=== PATIENT | female | born 1960 | race Caucasian/White ===

== ENCOUNTER → 2018-11-25 | Outpatient (CLI) | payer MEDICARE, MEDICAID ==
--- NOTE | 2018-11-25 09:30 | Diagnostic Imaging Report ---
CLINICAL INDICATION: Patient with elevated LFTs. Alcoholism in remission. EXAM: Right upper quadrant ultrasound. COMPARISON: None. FINDINGS: Bowel gas obscures portions of the pancreatic tail limiting evaluation. The pancreatic head and portion of the body show no significant abnormality. There is diffuse hyperechogenicity seen throughout the liver. The liver surface is smooth. There is no liver mass seen. The main portal vein demonstrates normal biphasic hepatopedal flow. The liver measures 16.0 cm. There is no intrahepatic or extrahepatic ductal dilation. Common bile duct measures 3.2 mm. The gallbladder is partially fluid-filled with no abnormality seen. There are no stones or sludge. There is no gallbladder wall thickening or pericholecystic fluid. There is no sonographic Delgado's sign. The right kidney is unremarkable with normal echogenicity, cortical thickness, size, and shape. There is no kidney mass or hydronephrosis. Right kidney measures 10.5 cm in craniocaudal dimension. There is no abdominal ascites. IMPRESSION: 1: There is diffuse hyperechogenicity seen throughout the liver which may be related to diffuse fatty infiltration or chronic hepatocellular disease. There is no liver mass seen. 2: Bowel gas obscures portions of the pancreatic tail. Otherwise pancreas is unremarkable as visualized. 3: Gallbladder is unremarkable with no stones or sludge. Dictated by: Dictated on workstation # [id number]
== END ==
LOC: RAD FS 08:16
PROVIDERS: ATTEND Nurse Practitioner Primary Care
DX: F10.21 Alcohol dependence, in remission (principal); R79.89 Other specified abnormal findings of blood chemistry
CPT/HCPCS: 76705

== ENCOUNTER → 2019-05-14 | Outpatient (CLI) | payer MEDICARE, MEDICAID ==
--- NOTE | 2019-05-14 17:00 | Diagnostic Imaging Report ---
INDICATION: Bilateral hip pain, no known injury. AP pelvis and AP and oblique views of both hips are obtained. No fracture or acute bony abnormality is seen. There is no lytic or blastic lesion. There is [id number] joint space narrowing of both hips with acetabular osteophyte formation. SI joints appear unremarkable. IMPRESSION: Moderate degenerative findings of both hips with no acute abnormality seen. Dictated by: Dictated on workstation # [id number]
== END ==
LOC: RAD FS 10:57
PROVIDERS: ATTEND Nurse Practitioner
DX: M16.0 Bilateral primary osteoarthritis of hip (principal)
CPT/HCPCS: 73521

== ENCOUNTER → 2020-12-22 | Outpatient (CLI) | payer MEDICARE, MEDICAID ==
--- NOTE | 2020-12-23 09:10 | Diagnostic Imaging Report ---
Indication: Routine screening. No prior mammograms are available for comparison. 2-D and 3-D bilateral screening mammography was performed with CAD. Both breasts are heterogeneously dense, limiting the sensitivity of mammography. There are benign calcifications in both breasts. There is a circumscribed nodule in the medial right breast approximately 3:00 location 3-4 cm from the nipple. No other masses are seen. No malignant appearing microcalcifications are identified. Axillae are unremarkable. IMPRESSION: BI-RADS Category 0 Circumscribed nodule in the right breast, as described. Additional views recommended for further evaluation. ACR BI-RADS Category 0: Incomplete. (Needs additional imaging evaluation). Result letter will be mailed to the patient. Note: At least 10% of breast cancer is not imaged by mammography. Dictated by: Dictated on workstation # [id number]
== END ==
LOC: RAD 15:15
PROVIDERS: ATTEND Nurse Practitioner Primary Care
DX: Z12.31 Encounter for screening mammogram for malignant neoplasm of breast (principal); Z00.00 Encounter for general adult medical examination without abnormal findings; Z80.3 Family history of malignant neoplasm of breast
CPT/HCPCS: 77063; 77067

== ENCOUNTER 2021-01-03 08:54 | Emergency (ER) | payer MEDICARE, MEDICAID ==
[~2021-01-03] VITALS: Ht 167 cm; Wt 79.5 kg
[2021-01-03 09:21] LABS: BASOPHILS % (AUTO) 0 % (0-10); EOSINOPHILS # (AUTO) 0.2 10^3/uL (0.0-0.3); EOSINOPHILS % (AUTO) 2 % (0-10); HEMATOCRIT 39 % (35-52); HEMOGLOBIN 12.8 g/dL (11.5-16.0); LYMPHOCYTES # (AUTO) 2.2 10^3/uL (1.0-4.0); LYMPHOCYTES % (AUTO) 25 % (12-44); MEAN CORPUSCULAR HEMOGLOBIN 28 pg (25-34); MEAN CORPUSCULAR HGB CONC 33 g/dL (32-36); MEAN CORPUSCULAR VOLUME 85 fL (80-99); MEAN PLATELET VOLUME 9.6 fL (9.0-12.2); MONOCYTES # (AUTO) 0.6 10^3/uL (0.0-1.0); MONOCYTES % (AUTO) 7 % (0-12); NEUTROPHILS # (AUTO) 5.8 10^3/uL (1.8-7.8); NEUTROPHILS % (AUTO) 66 % (42-75); PLATELET COUNT 262 10^3/uL (130-400); WHITE BLOOD COUNT 8.8 10^3/uL (4.3-11.0)
[2021-01-03 09:35] LABS: POTASSIUM 4.1 MMOL/L (3.6-5.0)
[2021-01-03 09:36] LABS: CALCIUM 9.2 MG/DL (8.5-10.1)
[2021-01-03 09:37] LABS: TOTAL PROTEIN 7.3 GM/DL (6.4-8.2)
[2021-01-03 09:39] LABS: BILIRUBIN,TOTAL 0.3 MG/DL (0.1-1.0)
[2021-01-03 09:41] LABS: CREATININE SERUM 0.8 MG/DL (0.60-1.30)
--- NOTE | 2021-01-03 10:27 | Diagnostic Imaging Report ---
INDICATION: Lower extremity swelling and shortness of breath. TECHNIQUE: Frontal chest obtained at 09:52 a.m. COMPARISON: There is no prior study for comparison. FINDINGS: Heart and mediastinal silhouette are normal in appearance. There is minimal central vascular prominence without edema. There is no consolidation or pneumothorax or pleural fluid. There are postop changes in lower cervical spine. Stimulator device is seen overlying the lower thoracic canal. IMPRESSION: Minimal central vascular prominence with no acute infiltrate or edema. Dictated by: Dictated on workstation # [id number]
--- NOTE | 2021-01-03 10:47 | ED General ---
General Chief Complaint: General Problems/Pain Stated Complaint: FEEL/LEG SWELLING Nursing Triage Note: AMB TO ROOM WITH C/O SWELLING TO LEG'S WAS TOLD BY PCP AT [facility] TO COME TO ED. LEGS SLIGHTLEY SWOLLEN Source of Information: Patient Exam Limitations: No Limitations History of Present Illness Date Seen by Provider: Jan 03, 2021 Time Seen by Provider: 09:15 Initial Comments This 60-year-old woman presents to the emergency room with complaints of generalized swelling to her feet and ankles bilaterally for the past 3 days. She started to do medication for restless leg syndrome about 1 month ago but she does not know what that medication was. She has otherwise had no medication changes or changes in her health history recently. She admits to some shortness of breath but states that that is chronic and she is a smoker. She has no cardiac history. She denies any increase in salt intake. She is presently on disability due to spine issues. She denies chest pain. Her primary care provider is Judah Feldman NP. Allergies and Home Medications Allergies Coded Allergies: Penicillins (Verified Allergy, Unknown, 01/03/21) codeine (Verified Allergy, Unknown, 01/03/21) Patient Home Medication List Home Medication List Reviewed: Yes Review of Systems Review of Systems Constitutional: no symptoms reported EENTM: no symptoms reported Respiratory: no symptoms reported, see HPI Cardiovascular: see HPI Gastrointestinal: no symptoms reported Genitourinary: no symptoms reported Musculoskeletal: no symptoms reported Skin: no symptoms reported Psychiatric/Neurological: No Symptoms Reported Hematologic/Lymphatic: No Symptoms Reported Immunological/Allergic: no symptoms reported Past [place]-Gxpbeo-Jarexm Hx Patient Social History Tobacco Use?: Yes Use of E-Cig and/or Vaping Sher: Current Everyday User Substance use?: No Pt feels they are or have been: No Immunizations Up To Date Influenza Vaccine Up-to-Date: Yes; Up-to-Date Past Medical History Surgeries: Yes (Back stimulator) Orthopedic Respiratory: No Cardiac: No Neurological: Yes (Restless leg syndrome) Genitourinary: No Gastrointestinal: Yes Irritable Bowel Musculoskeletal: Yes Chronic Back Pain Endocrine: No HEENT: No Cancer: No Psychosocial: Yes Sleep Difficulties Physical Exam Vital Signs Vital Signs - First Documented 01/03/21 08:58 Temp 36.5 Pulse 72 Resp 18 B/P (MAP) 160/70 (100) Pulse Ox 96 O2 Delivery Room Air Capillary Refill : Less Than 3 Seconds Height, Weight, BMI Height: '" Weight: lbs. oz. kg; 28.00 BMI Method: General Appearance: No Apparent Distress, WD/WN HEENT: Normal ENT Inspection Neck: Normal Inspection Respiratory: Lungs Clear, Normal Breath Sounds, No Accessory Muscle Use, No Respiratory Distress Cardiovascular: Regular Rate, Rhythm, No Murmur, Other (Mild bilateral edema of the ankles and feet) Gastrointestinal: Non Tender, Soft; No Distended Extremity: Non Tender, Pedal Edema, Swelling Neurologic/Psychiatric: Oriented x3, No Motor/Sensory Deficits, Normal Mood/Affect Skin: Normal Color, Warm/Dry Progress/Results/Core Measures Suspected Sepsis SIRS Temperature: Pulse: 72 Respiratory Rate: 18 Laboratory Tests 01/03/21 09:14: White Blood Count 8.8 Blood Pressure 160 /70 Mean: 100 Laboratory Tests 01/03/21 09:14: Creatinine 0.80, Platelet Count 262, Total Bilirubin 0.3 Results/Orders Lab Results Laboratory Tests Test 01/03/21 09:14 Range/Units White Blood Count 8.8 4.3-11.0 10^3/uL Red Blood Count 4.60 3.80-5.11 10^6/uL Hemoglobin 12.8 11.5-16.0 g/dL Hematocrit 39 35-52 % Mean Corpuscular Volume 85 80-99 fL Mean Corpuscular Hemoglobin 28 25-34 pg Mean Corpuscular Hemoglobin Concent 33 32-36 g/dL Red Cell Distribution Width 13.3 10.0-14.5 % Platelet Count 262 130-400 10^3/uL Mean Platelet Volume 9.6 9.0-12.2 fL Immature Granulocyte % (Auto) 1 % Neutrophils (%) (Auto) 66 42-75 % Lymphocytes (%) (Auto) 25 12-44 % Monocytes (%) (Auto) 7 0-12 % Eosinophils (%) (Auto) 2 0-10 % Basophils (%) (Auto) 0 0-10 % Neutrophils # (Auto) 5.8 1.8-7.8 10^3/uL Lymphocytes # (Auto) 2.2 1.0-4.0 10^3/uL Monocytes # (Auto) 0.6 0.0-1.0 10^3/uL Eosinophils # (Auto) 0.2 0.0-0.3 10^3/uL Basophils # (Auto) 0.0 0.0-0.1 10^3/uL Immature Granulocyte # (Auto) 0.0 0.0-0.1 10^3/uL Sodium Level 142 135-145 MMOL/L Potassium Level 4.1 3.6-5.0 MMOL/L Chloride Level 107 98-107 MMOL/L Carbon Dioxide Level 20 L 21-32 MMOL/L Anion Gap 15 H 5-14 MMOL/L Blood Urea Nitrogen 11 7-18 MG/DL Creatinine 0.80 0.60-1.30 MG/DL Estimat Glomerular Filtration Rate 73 BUN/Creatinine Ratio 14 Glucose Level 156 H 70-105 MG/DL Calcium Level 9.2 8.5-10.1 MG/DL Corrected Calcium 9.2 8.5-10.1 MG/DL Total Bilirubin 0.3 0.1-1.0 MG/DL Aspartate Amino Transf (AST/SGOT) 47 H 5-34 U/L Alanine Aminotransferase (ALT/SGPT) 77 H 0-55 U/L Alkaline Phosphatase 155 H 40-136 U/L B-Type Natriuretic Peptide 26.3 <100.0 PG/ML Total Protein 7.3 6.4-8.2 GM/DL Albumin 4.0 3.2-4.5 GM/DL My Orders Orders - GERSON ARORA MD BNP (01/03/21 09:15) Cbc With Automated Diff (01/03/21 09:15) Comprehensive Metabolic Panel (01/03/21 09:15) Ed Iv/Invasive Line Start (01/03/21 09:15) Chest 1 View, Ap/Pa Only (01/03/21 09:15) Vital Signs/I&O 01/03/21 01/03/21 08:58 10:51 Temp 36.5 Pulse 72 80 Resp 18 18 B/P (MAP) 160/70 (100) 126/64 Pulse Ox 96 94 O2 Delivery Room Air Room Air Capillary Refill : Less Than 3 Seconds Blood Pressure Mean: 100 Progress Note : Progress Note Work-up was unremarkable. See discharge instructions for further discussion. Departure Impression Primary Impression: Lower leg edema Disposition: 01 HOME, SELF-CARE Condition: Stable Departure-Patient Inst. Decision time for Depature: 10:46 Referrals: JUDAH FELDMAN APRN (PCP/Family) Primary Care Physician Patient Instructions: Dependent Edema (DC) Add. Discharge Instructions: There is no evidence of heart failure or kidney failure on your work-up in the ER. Please follow-up with your primary care provider as soon as possible to discuss other possible causes of your swelling. Review medications with your primary care provider as swelling is sometimes related to an adverse effect of any medication. Drink plenty of water and eat a low-salt diet. Elevate your feet when possible and avoid prolonged periods of time with your feet dangling or standing. Call with questions or concerns. Return to the ER if you have worsening symptoms. All discharge instructions reviewed with patient and/or family. Voiced understanding. GERSON ARORA MD Jan 03, 2021 10:47
[2021-01-03 10:51] VITALS: BP 126/64
== END 2021-01-03 10:51 | disposition home or self-care (01) ==
LOC: EDUNIT# 08:54 → ER 08:56
DX: R60.0 Localized edema (principal); F17.200 Nicotine dependence, unspecified, uncomplicated
CPT/HCPCS: 36415; 71045; 80053; 83880; 85025

== ENCOUNTER → 2021-01-18 | Outpatient (CLI) | payer MEDICARE, MEDICAID ==
--- NOTE | 2021-01-18 13:41 | Diagnostic Imaging Report ---
INDICATION: Right breast density. Patient presents for additional views. COMPARISON: Correlation is made with the screening study from 12/22/2020. TECHNIQUE: Unilateral right 2D and 3D diagnostic mammography was performed with CAD. This includes spot compression CC, rolled CC, and conventional 90 degree lateral views. FINDINGS: Additional views show a persistent circumscribed nodule in the inner right breast approximately 3-4 cm from the nipple. This appears to be at or slightly below the nipple line on the MLO view. No suspicious microcalcifications are seen. IMPRESSION: Persistent circumscribed nodule in the inner right breast 3-4 cm from the nipple. Further evaluation with ultrasound is recommended and will be performed today. ACR BI-RADS Category 0: Incomplete. (Needs additional imaging evaluation). Result letter will be mailed to the patient. Note: At least 10% of breast cancer is not imaged by mammography. Dictated by: Dictated on workstation # [id number]
--- NOTE | 2021-01-18 13:46 | Diagnostic Imaging Report ---
INDICATION: Abnormal mammogram. COMPARISON: Correlation is made with the diagnostic mammogram from earlier this same day as well as a screening mammogram from 12/22/2020. FINDINGS: Sonographic interrogation of the outer right breast from the 2 to 5 o'clock location was performed. There is a simple cyst at the 2 o'clock location of the right breast approximately 2 cm from the nipple measuring 5 mm x 5 mm x 7 mm. No internal vascularity is seen. This likely accounts for the mammographic density. No solid masses are detected. IMPRESSION: Simple cyst at the 2 o'clock location of the right breast, likely accounting for the mammographic density. The patient may return to routine annual screening mammography. ACR BI-RADS Category 2: Benign findings. Dictated by: Dictated on workstation # [id number]
== END ==
LOC: RAD 13:15
PROVIDERS: ATTEND Nurse Practitioner Primary Care
DX: N60.01 Solitary cyst of right breast (principal)

== ENCOUNTER 2021-02-04 16:45 | Emergency (ER) | payer MEDICARE, MEDICAID ==
[~2021-02-04] VITALS: Ht 167 cm; Wt 97.0 kg
--- OUTSIDE RECORDS SUMMARY | 2021-02-04 16:52 | XMS REPORT | Clinical Summary ---
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 End Date Status Medication Sig Dispensed Refills Start Date Active citalopram (CELEXA) 20 mg Take 40 mg by 0 tablet mouth. Active ALPRAZolam (XANAX) 0.25 Take 0.5 mg 0 mg tablet by mouth. Active albuterol HFA, conc: 90 Take 2 puffs 1 Inhaler 0 1 mcg/puff, (VENTOLIN) 90 by inhalation 4 mcg/actuation inhaler four times a day, as needed for Shortness of Breath or Wheezing. Active benzonatate (TESSALON) Take 1 20 capsule 0 200 mg capsule capsule by 4 mouth three times a day, as needed for Cough. Active Problems Not on file Social History Date Tobacco Use Types Packs/Day Years Used Current Every Day Smoker Cigarettes 1.5 Comments Alcohol Use Standard Drinks/Week No 0 (1 standard drink = 0.6 o z pure alcohol) Sex Assigned at Date Recorded Not on file Last Filed Vital Signs Reading Time Taken Comments Vital Sign 104/64 04/27/2015 10:30 AM [facility] Blood Pressure 100 04/27/2015 10:30 AM [facility] Pulse 37 C (98.6 F) 04/27/2015 10:30 AM [employer] [employer] Temperature 16 04/27/2015 10:30 AM [employer] C[facility]TER Respiratory Rate 100% 04/27/2015 10:30 AM B[facility] C[employer]TER Oxygen Saturation - - Inhaled Oxygen Concentration 68.5 kg (151 lb) 04/27/2015 10:30 AM [facility] C[facility] Weight 167.6 cm (5' 6") 04/27/2015 10:30 AM BOX C[employer]TER Height 24.37 04/27/2015 10:30 AM MST Body Mass Index Plan of Treatment Health Maintenance Due Date Last Done Comments CT Colonography 1959 Colon cancer: DNA-based 1959 stool test (Cologuard) HPV/Cotest 1959 Sigmoidoscopy 1959 gFOBT or FIT 1959 COVID-19 Vaccine (1) 1971 Cervical Cancer Screening 1980 Pap Smear 1980 Colonoscopy 2009 Colorectal Cancer 2009 Screening Mammogram 2009 Influenza Vaccine (#1) 2021 Pneumococcal Vaccine: 65+ 2024 Years (1 of 1 - PPSV23) HPV Vaccine Aged Out No longer eligible based on patient's age to complete this topic Pneumococcal Vaccine: Aged Out No longer eligib le based on patient's age to Pediatrics (0 to 5 Years) complete this topic and At-Risk Patients (6 to 64 Years) Results Not on filefrom Last 3 Months 

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
--- OUTSIDE RECORDS SUMMARY | 2021-02-04 16:52 | XMS REPORT | Clinical Summary ---
Demographics Home Phone Preferred Language German Marital Status Legally Yarsanism Affiliation Unknown Race White Ethnic Group Not or Author Author [facility] Organization [facility] Address Unknown Phone Unavailable Care Team Providers Care Computer Application Developer Name Role Phone Zora Mas TRAINMAN PP Allergies Comments Active Allergy Reactions Severity Noted Date Codeine Nausea And 04/19/2014 Vomiting Penicillins Unknown 04/19/2014 No sleep for 2 days Tramadol Other (see 04/19/2014 comments) Medications Not on file Active Problems Not on file Social History Date Tobacco Use Types Packs/Day Years Used Current Every Day Smoker 1.5 Comments Alcohol Use Standard Drinks/Week No 0 (1 standard drink = 0.6 o z pure alcohol) Sex Assigned at Date Recorded Not on file Plan of Treatment Not on file Results Not on filefrom Last 3 Months Care Teams Start Date End Date Computer Application Developer Relationship Specialty 09/05/18 Zora Mas, TRAINMAN PCP - General [address] [address]
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
[2021-02-04 18:03] LABS: BILIRUBIN,URINE NEGATIVE (NEGATIVE); CLARITY,URINE CLEAR; COLOR,URINE YELLOW; GLUCOSE, URINE (UA) NEGATIVE (NEGATIVE); KETONES,URINE NEGATIVE (NEGATIVE); LEUKOCYTE ESTERASE ,URINE NEGATIVE (NEGATIVE); NITRITE,URINE NEGATIVE (NEGATIVE); PROTEIN,URINE NEGATIVE (NEGATIVE)
[2021-02-04 18:11] LABS: BACTERIA,URINE NEGATIVE /HPF
[2021-02-04] MEDS ORDERED: GABAPENTIN 300 MG (NEURONTIN) CAP PO ONE (18:45)
--- NOTE | 2021-02-04 19:58 | Diagnostic Imaging Report ---
PROCEDURE: CT lumbar spine without contrast. TECHNIQUE: Multiple contiguous axial images were obtained through the lumbar spine without the use of intravenous contrast. Sagittal and coronal reformations were then performed. Auto Exposure Controls were utilized during the CT exam to meet ALARA standards for radiation dose reduction. INDICATION: Pain post fall. CORRELATION STUDY: CT pelvis performed same day. FINDINGS: There is incomplete imaging through the lumbosacral spine but is covered on the accompanying pelvis study. Lumbar spinal alignment is anatomic. Lumbar vertebral body heights are maintained. Decompressive laminectomies at the L3-L4 levels and partial resection of posterior elements and L2. There is no acute fracture or traumatic subluxation. There is partial visualization of spinal stimulator leads coursing into the spinal canal at the T11-T12 level. No significant osseous narrowing or encroachment of the spinal canal. Questioned soft tissue density in and around the L3-L4 level posteriorly along the laminectomy bed. Probable bilateral foraminal narrowing at the L4-L5 and L5-S1 levels owing to mild disc and osteophyte formation. Mild wall calcification of the abdominal aorta. Small hiatal hernia. Smoothly marginated indeterminate pleural-based density along the medial right lung base at T11-T12 level. IMPRESSION: Decompressive laminectomies of the lower lumbar spine. No acute bony abnormality. There is, however, probable foraminal narrowing owing to disc and osteophyte formation at the L4-L5 and L5-S1 levels. Dictated by: Dictated on workstation # [id number]
--- NOTE | 2021-02-04 20:14 | Diagnostic Imaging Report ---
PROCEDURE: CT pelvis without contrast. TECHNIQUE: Multiple contiguous axial images were obtained through the pelvis without the use of intravenous contrast. Sagittal and coronal reformations were performed. Auto Exposure Controls were utilized during the CT exam to meet ALARA standards for radiation dose reduction. INDICATION: Pain post fall. CORRELATION STUDY: None. FINDINGS: There is no acute displaced pelvic fracture. The SI joints and pubic symphysis are maintained. Pubic rami are intact. Bilateral hip joints appear to be maintained in alignment. Minimal overhanging osteophyte formation at the acetabulum, bilaterally. The sacrum intact. The L5-S1 level is with minimal broad-based disc bulge. Decompressive laminectomy is noted at the L4-L5 level. Soft tissues are unremarkable. No pelvic fluid. Mild to moderate stool in the distal colon. Partial visualization of generator pack in the left gluteal region. IMPRESSION: Negative for acute fracture of the pelvis. Dictated by: Dictated on workstation # [id number]
[2021-02-04] MEDS ORDERED: GABA300C PO (20:40)
--- NOTE | 2021-02-04 20:41 | ED Back Pain ---
General Chief Complaint: Back Problems Stated Complaint: BACK PAIN Nursing Triage Note: TO ED PER W/C C/O BACK PAIN HAD NERVE STIMULATOR PLACED 2-3 MONTHS AGO. FELL 2 WEEKS AGO HAS PAIN SINCE OXYCODONE NOT HELPING. Source of Information: Patient Exam Limitations: No Limitations History of Present Illness Date Seen by Provider: Feb 04, 2021 Time Seen by Provider: 18:25 Initial Comments This is 60-year-old woman presents to the emergency room with complaints of hip and lower back pain that started about 2 weeks ago when she had falls x2. She has developed a stabbing pain from the left hip down about 10 days ago. She denies any bowel or bladder dysfunction or any true weakness of the extremities. She takes oxycodone 5 mg every 6 hours but this is not sufficient to control her pain right now. She does have history of spine surgery. She had a nerve stimulator placed about 2 months ago to help control her chronic pain. Dr. Beth is her spine surgeon. Allergies and Home Medications Allergies Coded Allergies: Penicillins (Verified Allergy, Unknown, 01/03/21) codeine (Verified Allergy, Unknown, 01/03/21) Home Medications Gabapentin 300 Mg Capsule, 300 MG PO TID PRN for PAIN-BREAKTHROUGH Prescribed by: GERSON ABRAHAM on 02/04/212039 Patient Home Medication List Home Medication List Reviewed: Yes Review of Systems Constitutional: no symptoms reported EENTM: no symptoms reported Respiratory: no symptoms reported Cardiovascular: no symptoms reported Gastrointestinal: no symptoms reported Genitourinary: no symptoms reported : No Musculoskeletal: see HPI Skin: no symptoms reported Psychiatric/Neurological: See HPI Past Bnhchbf-Yhpkxc-Buejyf Hx Patient Social History Tobacco Use?: Yes Tobacco type used: Cigarettes Smokeless Tobacco Frequency: Current Everyday User Substance use?: No Past Medical History Surgeries: Yes (Back stimulator) Orthopedic (spine) Respiratory: No Cardiac: No Neurological: Yes (Restless leg syndrome) : No Genitourinary: No Gastrointestinal: Yes Irritable Bowel Musculoskeletal: Yes Chronic Back Pain Endocrine: No HEENT: No Cancer: No Psychosocial: Yes Sleep Difficulties Physical Exam Vital Signs Vital Signs - First Documented 02/04/21 17:42 Temp 36.1 Pulse 81 Resp 18 B/P (MAP) 168/63 (98) Pulse Ox 96 O2 Delivery Room Air Capillary Refill : Height, Weight, BMI Height: '" Weight: lbs. oz. kg; 34.00 BMI Method: General Appearance: No Apparent Distress, WD/WN HEENT: PERRL/EOMI, Normal ENT Inspection Neck: Normal Inspection Cardiovascular: Regular Rate, Rhythm, No Murmur Respiratory: Lungs Clear, Normal Breath Sounds, No Accessory Muscle Use Gastrointestinal: No Distended Extremity: Other (Mild pain with ROM. No significant TTP of hips) Neurologic/Psychiatric: Alert, Oriented x3, No Motor/Sensory Deficits, Normal Mood/Affect Skin: Normal Color, Warm/Dry Progress/Results/Core Measures Results/Orders Lab Results Laboratory Tests Test 02/04/21 17:45 Range/Units Urine Color YELLOW Urine Clarity CLEAR Urine pH 6.0 5-9 Urine Specific [place] 1.020 1.016-1.022 Urine Protein NEGATIVE NEGATIVE Urine Glucose (UA) NEGATIVE NEGATIVE Urine Ketones NEGATIVE NEGATIVE Urine Nitrite NEGATIVE NEGATIVE Urine Bilirubin NEGATIVE NEGATIVE Urine Urobilinogen 0.2 < = 1.0 MG/DL Urine Leukocyte Esterase NEGATIVE NEGATIVE Urine RBC (Auto) NEGATIVE NEGATIVE Urine RBC NONE /HPF Urine WBC 2-5 /HPF Urine Squamous Epithelial Cells 10-25 H /HPF Urine Renal Epithelial Cells NONE /HPF Urine Crystals NONE /LPF Urine Bacteria NEGATIVE /HPF Urine Casts NONE /LPF Urine Mucus NEGATIVE /LPF Urine Culture Indicated NO My Orders Orders - GERSON ARORA MD Gabapentin Capsule/Tablet (Neurontin Cap (02/04/21 18:45) Ct Lumbar Spine Wo (02/04/21 18:36) Ct Pelvis Wo (02/04/21 18:36) Medications Given in ED Vital Signs/I&O 02/04/21 02/04/21 17:42 20:47 Temp 36.1 Pulse 81 73 Resp 18 22 B/P (MAP) 168/63 (98) 147/61 Pulse Ox 96 95 O2 Delivery Room Air Room Air Blood Pressure Mean: 98 Progress Progress Note : Progress Note CT imaging was negative for stenosis, fractures, or dislocation. Patient has tried gabapentin for RLS before but not for neuropathy. A dose of gabapentin was administered in the ER as a trial. This was notably effective in treating her pain. See discharge instructions. Diagnostic Imaging Diagonstic Imaging: CT Plain Films/CT/US/NM/MRI: pelvis Comments NAME: [facility]IN[facility]NSON L [facility] REC#: [id number] PT STATUS: REG ER : 1960 PHYSICIAN: GERSON ARORA MD ADMIT DATE: 02/04/21/ER Signed Date of Exam:02/04/21 CT PELVIS WO PROCEDURE: CT pelvis without contrast. TECHNIQUE: Multiple contiguous axial images were obtained through the pelvis without the use of intravenous contrast. Sagittal and coronal reformations were performed. Auto Exposure Controls were utilized during the CT exam to meet ALARA standards for radiation dose reduction. INDICATION: Pain post fall. CORRELATION STUDY: None. FINDINGS: There is no acute displaced pelvic fracture. The SI joints and pubic symphysis are maintained. Pubic rami are intact. Bilateral hip joints appear to be maintained in alignment. Minimal overhanging osteophyte formation at the acetabulum, bilaterally. The sacrum intact. The L5-S1 level is with minimal broad-based disc bulge. Decompressive laminectomy is noted at the L4-L5 level. Soft tissues are unremarkable. No pelvic fluid. Mild to moderate stool in the distal colon. Partial visualization of generator pack in the left gluteal region. IMPRESSION: Negative for acute fracture of the pelvis. Dictated by: Dictated on workstation # [id number] Dict: 02/04/211958 Trans: 02/04/212227 [facility] [id number] Interpreted by: ESTEFANIA SOTELO DO Electronically signed by: ESTEFANIA SOTELO DO 02/04/212227 Diagonstic Imaging: CT Plain Films/CT/US/NM/MRI: other (lumbar spine) Comments NAME: JOHNSON ABDI Scott [facility] REC#: [id number] PT STATUS: REG ER : 1960 PHYSICIAN: GERSON ARORA MD ADMIT DATE: 02/04/21/ER Signed Date of Exam:02/04/21 CT LUMBAR SPINE WO PROCEDURE: CT lumbar spine without contrast. TECHNIQUE: Multiple contiguous axial images were obtained through the lumbar spine without the use of intravenous contrast. Sagittal and coronal reformations were then performed. Auto Exposure Controls were utilized during the CT exam to meet ALARA standards for radiation dose reduction. INDICATION: Pain post fall. CORRELATION STUDY: CT pelvis performed same day. FINDINGS: There is incomplete imaging through the lumbosacral spine but is covered on the accompanying pelvis study. Lumbar spinal alignment is anatomic. Lumbar vertebral body heights are maintained. Decompressive laminectomies at the L3-L4 levels and partial resection of posterior elements and L2. There is no acute fracture or traumatic subluxation. There is partial visualization of spinal stimulator leads coursing into the spinal canal at the T11-T12 level. No significant osseous narrowing or encroachment of the spinal canal. Questioned soft tissue density in and around the L3-L4 level posteriorly along the laminectomy bed. Probable bilateral foraminal narrowing at the L4-L5 and L5-S1 levels owing to mild disc and osteophyte formation. Mild wall calcification of the abdominal aorta. Small hiatal hernia. Smoothly marginated indeterminate pleural-based density along the medial right lung base at T11-T12 level. IMPRESSION: Decompressive laminectomies of the lower lumbar spine. No acute bony abnormality. There is, however, probable foraminal narrowing owing to disc and osteophyte formation at the L4-L5 and L5-S1 levels. Dictated by: Dictated on workstation # [id number] Dict: 02/04/211946 Trans: 02/04/212227 [facility] [id number] Interpreted by: ESTEFANIA SOTELO DO Electronically signed by: ESTEFANIA SOTELO DO 02/04/212227 Departure Impression Primary Impression: Lumbar radiculopathy Additional Impression: Fall on same level Qualified Codes: W18.30XA - Fall on same level, unspecified, initial encounter Disposition: 01 HOME, SELF-CARE Condition: Improved Departure-Patient Inst. Decision time for Depature: 20:38 Referrals: DENNIS ANN DO (PCP) Primary Care Physician JUDAH FELDMAN APRN (Family) Primary Care Physician Patient Instructions: Radiculopathy, Low Back Pain (DC) Add. Discharge Instructions: No significant injuries were noted on your CT scans. You may continue taking oxycodone as previously prescribed. Add gabapentin as directed for additional pain management. If the gabapentin alone does not resolve the breakthrough pain, double your oxycodone dose until you are able to follow-up with your doctors. Follow-up with Dr. Beth and your primary care provider soon as possible. Please bring your disc and discharge papers with you to those follow-ups. Call with questions or concerns. Return to the ER if you have worsening symptoms, especially if you develop true weakness of your leg, numbness in the groin, or difficulty controlling bowels or bladder. All discharge instructions reviewed with patient and/or family. Voiced understanding. Scripts Gabapentin (Neurontin) 300 Mg Capsule 300 MG PO TID PRN for PAIN-BREAKTHROUGH, #20 CAP Prov: GERSON ARORA MD 02/04/21 Copy Copies To 1: GERSON BETH JOSHUA T MD Feb 04, 2021 20:41
[2021-02-04 20:47] VITALS: BP 147/61
== END 2021-02-04 20:47 | disposition home or self-care (01) ==
LOC: EDUNIT# 16:45 → ER 16:46
DX: M54.16 Radiculopathy, lumbar region (principal); F17.210 Nicotine dependence, cigarettes, uncomplicated
CPT/HCPCS: 72131; 72192; 81000

== ENCOUNTER → 2021-02-17 | Outpatient (CLI) | payer MEDICARE, MEDICAID ==
[~2021-02-17] MED LIST: GABA300C PO
== END ==
LOC: RAD 12:15
PROVIDERS: ATTEND Nurse Practitioner Primary Care
DX: Z53.9 Procedure and treatment not carried out, unspecified reason (principal)

== ENCOUNTER → 2021-02-17 | Outpatient (CLI) | payer MEDICARE, MEDICAID ==
--- NOTE | 2021-02-17 15:44 | Diagnostic Imaging Report ---
Fell 2 weeks ago. Continued pain EXAMINATION is a left knee from 02/17/2021 FINDINGS: 3 views of the knee. There are degenerative changes noted at the proximal fibula and adjacent tibia. No fractures or dislocations. Joint spaces are preserved. No significant joint effusion. IMPRESSION: 1. Chronic findings with no acute osseous abnormality. Dictated by: Dictated on workstation # [id number]
== END ==
LOC: RAD 14:48
PROVIDERS: ATTEND Nurse Practitioner Primary Care
DX: M25.562 Pain in left knee (principal)
CPT/HCPCS: 73562

== ENCOUNTER 2022-07-05 14:51 | Emergency (ER) | payer MEDICARE, MEDICAID ==
[~2022-07-05] VITALS: Ht 165 cm; Wt 81.6 kg
--- NOTE | 2022-07-05 15:16 | ED Neurological Problem ---
General Chief Complaint: Altered Mental Status Stated Complaint: DIZZY | CONFUSED Nursing Triage Note: PT AMBULATORY TO ER WITH FAMILY. REPORTS PT CONFUSED UPON WAKING UP THIS AM. REPORTS HAS HAD PERIODS OF CONFUSION BEFORE BUT USUALLY ONLY LASTS FOR 5-10 MINUTES THEN RESOLVES. REPORTS PT HAS BEEN CONFUSED ALL DAY. PT TALKING ABOUT PETS AND PEOPLE THAT ARE NOT PRESENT. PT ALERT AND ORIENTED UPON ARRIVAL, ANSWERING QUESTIONS APPROPRIATELY. PT ALSO C/O L LEG NUMBNESS. History of Present Illness Date Seen by Provider: Jul 05, 2022 Time Seen by Provider: 15:15 Initial Comments 61-year-old female with PMH of DM2, is here with complaints of altered mental status and confusion since today morning. Patient's reports that occa sionally patient is confused and it will last for a couple of minutes. But today patient has been confused all morning and is talking about things that are not relevant, or have any meaning. Patient is alert oriented x3 in the ER during H&P. Patient denies fever, illness, pain, chest pain, abdominal pain, headache, nausea and vomiting, falls, head strike, LOC, dizziness. Patient smokes 1 cigarette every 4 to 5 days, patient has cut down significantly over the past couple of years. Allergies and Home Medications Allergies Coded Allergies: Penicillins (Verified Allergy, Unknown, 01/03/21) codeine (Verified Allergy, Unknown, 01/03/21) Patient Home Medication List Home Medication List Reviewed: Yes Gabapentin (Neurontin) 300 Mg Capsule, 300 MG PO TID PRN for PAIN-BREAKTHROUGH Prescribed by: GERSON ABRAHAM on 02/04/212039 Review of Systems Review of Systems Constitutional: no symptoms reported Eyes: No Symptoms Reported Ears, Nose, Mouth, Throat: no symptoms reported Respiratory: no symptoms reported Cardiovascular: no symptoms reported Gastrointestinal: no symptoms reported Genitourinary: no symptoms reported Musculoskeletal: no symptoms reported Skin: no symptoms reported Psychiatric/Neurological: See HPI, Other Endocrine: No Symptoms Reported Hematologic/Lymphatic: No Symptoms Reported Past Liofqwk-Ehwhpz-Sfsouc Hx Patient Social History Tobacco Use?: Yes Tobacco type used: Cigarettes Smoking Status: Current Someday Smoker Use of E-Cig and/or Vaping dev: No Substance use?: No Alcohol Use?: No Pt feels they are or have been: No Immunizations Up To Date First/Initial COVID19 Vaccinat: DENIES Past Medical History Surgeries: Yes (Back stimulator) Orthopedic Respiratory: No Cardiac: No Neurological: Yes (Restless leg syndrome) Genitourinary: No Gastrointestinal: Yes Irritable Bowel Musculoskeletal: Yes Chronic Back Pain Endocrine: No HEENT: No Cancer: No Psychosocial: Yes Sleep Difficulties Physical Exam Vital Signs Vital Signs - First Documented 07/05/22 15:01 Temp 36.7 Pulse 96 Resp 18 B/P (MAP) 115/51 (72) Pulse Ox 98 O2 Delivery Room Air Capillary Refill : Height, Weight, BMI Height: '" Weight: lbs. oz. 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, no motor/sensory deficits, alert, normal mood/affect, oriented x 3 Crainal Nerves: normal hearing, normal speech, PERRL Coordination/Gait: normal finger to nose, normal gait Motor/Sensory: no motor deficit, no sensory deficit Skin: normal color, warm/dry Lymphatic: no adenopathy Focused Exam Lactate Level 07/05/22 15:30: Lactic Acid Level 0.86 Lactic Acid Level Laboratory Tests Test 07/05/22 15:30 Lactic Acid Level 0.86 MMOL/L (0.50-2.00) Progress/Results/Core Measures Results/Orders Lab Results Laboratory Tests Test 07/05/22 15:09 07/05/22 15:30 07/05/22 16:45 Range/Units White Blood Count 9.3 4.3-11.0 10^3/uL Red Blood Count 4.23 3.80-5.11 10^6/uL Hemoglobin 12.1 11.5-16.0 g/dL Hematocrit 36 35-52 % Mean Corpuscular Volume 85 80-99 fL Mean Corpuscular Hemoglobin 29 25-34 pg Mean Corpuscular Hemoglobin Concent 34 32-36 g/dL Red Cell Distribution Width 12.8 10.0-14.5 % Platelet Count 288 130-400 10^3/uL Mean Platelet Volume 9.6 9.0-12.2 fL Immature Granulocyte % (Auto) 0 % Neutrophils (%) (Auto) 68 42-75 % Lymphocytes (%) (Auto) 23 12-44 % Monocytes (%) (Auto) 7 0-12 % Eosinophils (%) (Auto) 2 0-10 % Basophils (%) (Auto) 0 0-10 % Neutrophils # (Auto) 6.3 1.8-7.8 X 10^3 Lymphocytes # (Auto) 2.2 1.0-4.0 X 10^3 Monocytes # (Auto) 0.6 0.0-1.0 X 10^3 Eosinophils # (Auto) 0.2 0.0-0.3 10^3/uL Basophils # (Auto) 0.0 0.0-0.1 10^3/uL Immature Granulocyte # (Auto) 0.0 0.0-0.1 10^3/uL Sodium Level 139 135-145 MMOL/L Potassium Level 3.5 L 3.6-5.0 MMOL/L Chloride Level 108 H 98-107 MMOL/L Carbon Dioxide Level 21 21-32 MMOL/L Anion Gap 10 5-14 MMOL/L Blood Urea Nitrogen 18 7-18 MG/DL Creatinine 0.81 0.60-1.30 MG/DL Estimat Glomerular Filtration Rate 82 BUN/Creatinine Ratio 22 Glucose Level 175 H 70-105 MG/DL Calcium Level 9.6 8.5-10.1 MG/DL Corrected Calcium 9.5 8.5-10.1 MG/DL Magnesium Level 2.0 1.6-2.4 MG/DL Total Bilirubin 0.2 0.1-1.0 MG/DL Aspartate Amino Transf (AST/SGOT) 23 5-34 U/L Alanine Aminotransferase (ALT/SGPT) 31 0-55 U/L Alkaline Phosphatase 153 H 40-136 U/L Troponin I < 0.028 <0.028 NG/ML Total Protein 7.3 6.4-8.2 GM/DL Albumin 4.1 3.2-4.5 GM/DL Lactic Acid Level 0.86 0.50-2.00 MMOL/L Urine Color YELLOW Urine Clarity CLEAR Urine pH 7.0 5-9 Urine Specific [place] 1.010 L 1.016-1.022 Urine Protein NEGATIVE NEGATIVE Urine Glucose (UA) NEGATIVE NEGATIVE Urine Ketones NEGATIVE NEGATIVE Urine Nitrite POSITIVE H NEGATIVE Urine Bilirubin NEGATIVE NEGATIVE Urine Urobilinogen 0.2 < = 1.0 MG/DL Urine Leukocyte Esterase 2+ H NEGATIVE Urine RBC (Auto) NEGATIVE NEGATIVE Urine RBC NONE /HPF Urine WBC 5-10 H /HPF Urine Squamous Epithelial Cells 0-2 /HPF Urine Crystals NONE /LPF Urine Bacteria LARGE H /HPF Urine Casts NONE /LPF Urine Mucus NEGATIVE /LPF Urine Culture Indicated YES Urine Opiates Screen NEGATIVE NEGATIVE Urine Oxycodone Screen POSITIVE H NEGATIVE Urine Methadone Screen NEGATIVE NEGATIVE Urine Propoxyphene Screen NEGATIVE NEGATIVE Urine Barbiturates Screen NEGATIVE NEGATIVE Ur Tricyclic Antidepressants Screen NEGATIVE NEGATIVE Urine Phencyclidine Screen NEGATIVE NEGATIVE Urine Amphetamines Screen NEGATIVE NEGATIVE Urine Methamphetamines Screen NEGATIVE NEGATIVE Urine Benzodiazepines Screen POSITIVE H NEGATIVE Urine Cocaine Screen NEGATIVE NEGATIVE Urine Cannabinoids Screen NEGATIVE NEGATIVE My Orders Orders - TOSHIA ROBLES MD Ct Head Wo (07/05/22 15:17) Continuous Ekg Monitoring (07/05/22 15:17) Ekg Tracing (07/05/22 15:17) Chest 1 View, Ap/Pa Only (07/05/22 15:17) Cbc With Automated Diff (07/05/22 15:18) Comprehensive Metabolic Panel (07/05/22 15:18) Drug Screen Stat (Urine) (07/05/22 15:18) Lactic Acid Analyzer (07/05/22 15:18) Magnesium (07/05/22 15:18) Ua Culture If Indicated (07/05/22 15:18) Troponin I Peach (07/05/22 15:18) Urine Culture (07/05/22 16:45) Vital Signs/I&O 07/05/22 15:01 Temp 36.7 Pulse 96 Resp 18 B/P (MAP) 115/51 (72) Pulse Ox 98 O2 Delivery Room Air Blood Pressure Mean: 72 Progress Progress Note : Progress Note 1. AMS DUE TO ACUTE CYSTITIS: -Patient is not confused or altered in the ER at all. She is AO x3 and is able to answer all questions and follow commands without any difficulty. No neurological deficits. -CT HEAD: No acute findings - Labs: Unremarkable - UA/ UDS: Positive for oxycodone and benzodiazepines, UA is positive for nitrates, leukocyte esterase, WBC, bacteria - Troponin/ EKG: Non-ischemic - Prescription for Nitrofurantoin 100mg bid for 7 days -Adequate hydration advised -Follow-up with PCP in the next 7 days Initial ECG Impression Date: Jul 05, 2022 Initial ECG Impression Time: 15:50 Initial ECG Rate: 84 Initial ECG Rhythm: Normal Sinus Initial ECG Impression: Nonspecific Changes Initial ECG Comparisson: No Previous ECG Available Diagnostic Imaging Diagonstic Imaging: CT Plain Films/CT/US/NM/MRI: head Comments [facility] [place] [place] NAME: JOHNSON ABDI [facility] REC#: [id number] PT STATUS: REG ER : 1960 PHYSICIAN: TOSHIA ROBLES MD ADMIT DATE: 07/05/22/ER Signed Date of Exam:07/05/22 CHEST 1 VIEW, AP/PA ONLY INDICATION: Altered mental status Frontal chest obtained at 3:56 p.m. and compared to 01/03/2021. Heart and mediastinal silhouette are normal in appearance. The lungs are clear. There is no pneumothorax or pleural fluid. Stimulator device overlying the thoracic canal is noted. IMPRESSION: No acute process in the chest. Dictated by: Dictated on workstation # [id number] Dict: 07/05/22 1610 Trans: 07/05/221716 [facility] [id number] Interpreted by: EJ MCCLOUD MD Electronically signed by: EJ MCCLOUD MD 07/05/221716 [facility] [place] NAME: JOHNSON ABDI [facility] REC#: [id number] PT STATUS: REG ER : 1960 PHYSICIAN: TOSHIA ROBLES MD ADMIT DATE: 07/05/22/ER Signed Date of Exam:07/05/22 CT HEAD WO PROCEDURE: CT head without contrast. TECHNIQUE: Multiple contiguous axial images were obtained through the brain without the use of intravenous contrast. Auto Exposure Controls were utilized during the CT exam to meet ALARA standards for radiation dose reduction. INDICATION: Awoke, confused, symptomatic episodic. COMPARISON: No priors. FINDINGS: There is no intracranial hemorrhage, hydrocephalus, cerebral edema, mass, mass effect, nor evidence for an elevation of the intracranial pressures. The basilar cisterns are patent. There is no sulcal effacement. Griffin-white matter differentiation is maintained, and the orbits, sinuses, and calvarium are nonacute. IMPRESSION: Unremarkable CT head. Dictated by: Dictated on workstation # [id number] Dict: 07/05/22 1611 Trans: 07/05/22 1706 [id number] Interpreted by: JUAN DALY Electronically signed by: JUAN DALY 07/05/221705 Departure Impression Primary Impression: Altered mental status Qualified Codes: R41.82 - Altered mental status, unspecified Additional Impression: Acute cystitis without hematuria Disposition: HOME, SELF-CARE Condition: Improved Departure-Patient Inst. Referrals: DENNIS ANN DO (PCP) Primary Care Physician JUDAH FELDMAN APRN (Family) Primary Care Physician Patient Instructions: Acute Cystitis (DC), Altered Mental Status Add. Discharge Instructions: - Prescription for Nitrofurantoin 100mg bid for 7 days -Adequate hydration advised -Follow-up with PCP in the next 7 days All discharge instructions reviewed with patient and/or family. Voiced understanding. Scripts Nitrofurantoin Macrocrystal (Nitrofurantoin) 100 Mg Capsule 100 MG PO Q12H for 7 Days, #14 CAP Prov: TOSHIA ROBLES MD 07/05/22 TOSHIA ROBLES MD Jul 05, 2022 15:16
[2022-07-05 15:28] LABS: ALBUMIN 4.1 GM/DL (3.2-4.5)
[2022-07-05 15:29] LABS: CHLORIDE 108 MMOL/L (98-107); POTASSIUM 3.5 MMOL/L (3.6-5.0); SODIUM 139 MMOL/L (135-145)
[2022-07-05 15:30] LABS: CALCIUM 9.6 MG/DL (8.5-10.1)
[2022-07-05 15:31] LABS: GLUCOSE 175 MG/DL (70-105); TOTAL PROTEIN 7.3 GM/DL (6.4-8.2)
[2022-07-05 15:32] LABS: CARBON DIOXIDE 21 MMOL/L (21-32)
[2022-07-05 15:33] LABS: BILIRUBIN,TOTAL 0.2 MG/DL (0.1-1.0)
[2022-07-05 15:34] LABS: ALKALINE PHOSPHATASE 153 U/L (40-136)
[2022-07-05 15:35] LABS: CREATININE SERUM 0.81 MG/DL (0.60-1.30); GFR ESTIMATED 82
[2022-07-05 15:36] LABS: BASOPHILS % (AUTO) 0 % (0-10); BUN/CREATININE RATIO 22; EOSINOPHILS # (AUTO) 0.2 10^3/uL (0.0-0.3); EOSINOPHILS % (AUTO) 2 % (0-10); HEMATOCRIT 36 % (35-52); HEMOGLOBIN 12.1 g/dL (11.5-16.0); LYMPHOCYTES # (AUTO) 2.2 X 10^3 (1.0-4.0); LYMPHOCYTES % (AUTO) 23 % (12-44); MEAN CORPUSCULAR HEMOGLOBIN 29 pg (25-34); MEAN CORPUSCULAR HGB CONC 34 g/dL (32-36); MEAN CORPUSCULAR VOLUME 85 fL (80-99); MEAN PLATELET VOLUME 9.6 fL (9.0-12.2); MONOCYTES # (AUTO) 0.6 X 10^3 (0.0-1.0); MONOCYTES % (AUTO) 7 % (0-12); NEUTROPHILS # (AUTO) 6.3 X 10^3 (1.8-7.8); NEUTROPHILS % (AUTO) 68 % (42-75); PLATELET COUNT 288 10^3/uL (130-400); WHITE BLOOD COUNT 9.3 10^3/uL (4.3-11.0)
[2022-07-05 15:38] LABS: ALANINE AMINOTRANSFERASE 31 U/L (0-55)
--- NOTE | 2022-07-05 16:12 | Diagnostic Imaging Report ---
INDICATION: Altered mental status Frontal chest obtained at 3:56 p.m. and compared to 01/03/2021. Heart and mediastinal silhouette are normal in appearance. The lungs are clear. There is no pneumothorax or pleural fluid. Stimulator device overlying the thoracic canal is noted. IMPRESSION: No acute process in the chest. Dictated by: Dictated on workstation # [id number]
--- NOTE | 2022-07-05 16:27 | Diagnostic Imaging Report ---
PROCEDURE: CT head without contrast. TECHNIQUE: Multiple contiguous axial images were obtained through the brain without the use of intravenous contrast. Auto Exposure Controls were utilized during the CT exam to meet ALARA standards for radiation dose reduction. INDICATION: Awoke, confused, symptomatic episodic. COMPARISON: No priors. FINDINGS: There is no intracranial hemorrhage, hydrocephalus, cerebral edema, mass, mass effect, nor evidence for an elevation of the intracranial pressures. The basilar cisterns are patent. There is no sulcal effacement. Griffin-white matter differentiation is maintained, and the orbits, sinuses, and calvarium are nonacute. IMPRESSION: Unremarkable CT head. Dictated by: Dictated on workstation # [id number]
[2022-07-05 17:11] LABS: AMPHETAMINE SCREEN, URINE NEGATIVE (NEGATIVE); BARBITURATE SCREEN URINE NEGATIVE (NEGATIVE); BENZODIAZEPINES SCREEN URINE POSITIVE (NEGATIVE); CANNABINOID SCREEN, URINE NEGATIVE (NEGATIVE); COCAINE SCREEN URINE NEGATIVE (NEGATIVE); METHADONE STAT NEGATIVE (NEGATIVE); OPIATE SCREEN URINE NEGATIVE (NEGATIVE); OXYCODONE STAT POSITIVE (NEGATIVE); PROPOXYPHENE STAT NEGATIVE (NEGATIVE); TRICYCLIC ANTIDEPRESSANTS SCRE NEGATIVE (NEGATIVE)
[2022-07-05 17:34] LABS: BILIRUBIN,URINE NEGATIVE (NEGATIVE); CLARITY,URINE CLEAR; COLOR,URINE YELLOW; GLUCOSE, URINE (UA) NEGATIVE (NEGATIVE); KETONES,URINE NEGATIVE (NEGATIVE); LEUKOCYTE ESTERASE ,URINE 2+ (NEGATIVE); NITRITE,URINE POSITIVE (NEGATIVE); PROTEIN,URINE NEGATIVE (NEGATIVE)
[2022-07-05 17:46] LABS: BACTERIA,URINE LARGE /HPF; SQUAMOUS EPITHELIAL CELL,UR 0-2 /HPF
[2022-07-05] MEDS ORDERED: NITR100C PO (17:57)
[2022-07-05 18:06] VITALS: BP 133/86
== END 2022-07-05 18:07 | disposition home or self-care (01) ==
LOC: EDUNIT# 14:51 → ER 14:53
DX: R41.82 Altered mental status, unspecified (principal); N30.00 Acute cystitis without hematuria; F17.210 Nicotine dependence, cigarettes, uncomplicated; Z28.310 Unvaccinated for COVID-19
CPT/HCPCS: 36415; 70450; 71045; 80053; 80306; 81000; 83605; 83735; 84484; 85025; 87077; 87088; 93005

== ENCOUNTER → 2022-07-17 | Outpatient (CLI) | payer MEDICARE, MEDICAID ==
[~2022-07-17] MED LIST changes: +NITR100C PO
[2022-07-17 13:12] LABS: BASOPHILS % (AUTO) 0 % (0-10); EOSINOPHILS # (AUTO) 0.3 10^3/uL (0.0-0.3); EOSINOPHILS % (AUTO) 3 % (0-10); HEMATOCRIT 37 % (35-52); HEMOGLOBIN 12.2 g/dL (11.5-16.0); LYMPHOCYTES # (AUTO) 2.8 10^3/uL (1.0-4.0); LYMPHOCYTES % (AUTO) 30 % (12-44); MEAN CORPUSCULAR HEMOGLOBIN 28 pg (25-34); MEAN CORPUSCULAR HGB CONC 33 g/dL (32-36); MEAN CORPUSCULAR VOLUME 86 fL (80-99); MEAN PLATELET VOLUME 8.9 fL (9.0-12.2); MONOCYTES # (AUTO) 0.5 10^3/uL (0.0-1.0); MONOCYTES % (AUTO) 5 % (0-12); NEUTROPHILS # (AUTO) 5.7 10^3/uL (1.8-7.8); NEUTROPHILS % (AUTO) 61 % (42-75); PLATELET COUNT 329 10^3/uL (130-400); WHITE BLOOD COUNT 9.3 10^3/uL (4.3-11.0)
[2022-07-17 13:15] LABS: BILIRUBIN,URINE NEGATIVE (NEGATIVE); CLARITY,URINE CLEAR; COLOR,URINE YELLOW; GLUCOSE, URINE (UA) NEGATIVE (NEGATIVE); KETONES,URINE NEGATIVE (NEGATIVE); LEUKOCYTE ESTERASE ,URINE TRACE (NEGATIVE); NITRITE,URINE NEGATIVE (NEGATIVE); PROTEIN,URINE NEGATIVE (NEGATIVE)
[2022-07-17 13:24] LABS: BACTERIA,URINE FEW /HPF
[2022-07-17 13:34] LABS: ERYTHROCYTE SEDIMENTATION RATE 37 MM/HR (0-30)
[2022-07-17 13:43] LABS: ALBUMIN 4.2 GM/DL (3.2-4.5); BILIRUBIN,TOTAL 0.4 MG/DL (0.1-1.0); CALCIUM 9.4 MG/DL (8.5-10.1); CREATININE SERUM 0.79 MG/DL (0.60-1.30); POTASSIUM 3.6 MMOL/L (3.6-5.0); TOTAL PROTEIN 7.7 GM/DL (6.4-8.2)
== END ==
LOC: LAB 12:58
PROVIDERS: ATTEND Nurse Practitioner Primary Care
DX: N39.0 Urinary tract infection, site not specified (principal); R05.9 Cough, unspecified; R41.82 Altered mental status, unspecified
CPT/HCPCS: 36415; 80053; 81000; 85025; 85652; 86141; 86308; 86738; 87088

== ENCOUNTER → 2022-09-18 | Outpatient (CLI) | payer MEDICARE, MEDICAID ==
--- NOTE | 2022-09-18 08:26 | Diagnostic Imaging Report ---
INDICATION: Hip pain AP pelvis and AP and oblique views of both hips are obtained. No fracture or acute bony abnormality is seen. There is moderate degenerative change of both hips with joint space narrowing and acetabular osteophyte formation. There is no lytic or blastic lesion. Stimulator device overlying the left hemipelvis is noted. IMPRESSION: Moderate chronic changes of both hips with no acute abnormality. Dictated by: Dictated on workstation # [id number]
== END ==
LOC: RAD 06:30
PROVIDERS: ATTEND Nurse Practitioner Primary Care
DX: M16.0 Bilateral primary osteoarthritis of hip (principal)
CPT/HCPCS: 73523

== ENCOUNTER → 2022-12-18 | Outpatient (CLI) | payer MEDICARE, MEDICAID ==
--- NOTE | 2022-12-18 16:43 | Diagnostic Imaging Report ---
Indication: Routine screening. Comparison is made with prior mammogram from 12/22/2020. 2-D and 3-D bilateral screening mammography was performed with CAD. Both breasts are heterogeneously dense, limiting the sensitivity of mammography. The parenchymal pattern is stable. No mass or malignant-appearing microcalcifications are seen. There are benign calcifications bilaterally. Axillae are unremarkable. IMPRESSION: BI-RADS Category 2 No mammographic features suspicious for malignancy are identified. ACR BI-RADS Category 2: Benign findings. Result letter will be mailed to the patient. Note: At least 10% of breast cancer is not imaged by mammography. Dictated by: Dictated on workstation # [id number]
== END ==
LOC: RAD 08:54
PROVIDERS: ATTEND Nurse Practitioner Primary Care
DX: Z12.31 Encounter for screening mammogram for malignant neoplasm of breast (principal)
CPT/HCPCS: 77063; 77067

== ENCOUNTER → 2023-01-29 | Outpatient (CLI) | payer MEDICARE, MEDICAID ==
[2023-01-29 11:04] LABS: HEMATOCRIT 36 % (35-52); HEMOGLOBIN 11.9 g/dL (11.5-16.0); MEAN CORPUSCULAR HEMOGLOBIN 28 pg (25-34); MEAN CORPUSCULAR HGB CONC 33 g/dL (32-36); MEAN CORPUSCULAR VOLUME 84 fL (80-99); MEAN PLATELET VOLUME 9.8 fL (9.0-12.2); PLATELET COUNT 243 10^3/uL (130-400); WHITE BLOOD COUNT 6.9 10^3/uL (4.3-11.0)
[2023-01-29 11:15] LABS: POTASSIUM 3.6 MMOL/L (3.6-5.0)
[2023-01-29 11:16] LABS: CALCIUM 9.4 MG/DL (8.5-10.1)
[2023-01-29 11:17] LABS: TOTAL PROTEIN 6.8 GM/DL (6.4-8.2)
[2023-01-29 11:19] LABS: BILIRUBIN,TOTAL 0.3 MG/DL (0.1-1.0)
[2023-01-29 11:21] LABS: CREATININE SERUM 0.89 MG/DL (0.60-1.30)
== END ==
LOC: LAB 10:34
PROVIDERS: ATTEND Nurse Practitioner Primary Care
DX: E55.9 Vitamin D deficiency, unspecified (principal); R73.03 Prediabetes; Z79.899 Other long term (current) drug therapy
CPT/HCPCS: 36415; 80053; 82306; 83036; 85027

== ENCOUNTER → 2023-05-08 | Outpatient (CLI) | payer MEDICARE, MEDICAID ==
[2023-05-08 10:54] LABS: ALBUMIN 4.2 GM/DL (3.2-4.5); POTASSIUM 3.8 MMOL/L (3.6-5.0)
[2023-05-08 10:55] LABS: CALCIUM 9.4 MG/DL (8.5-10.1)
[2023-05-08 10:57] LABS: TOTAL PROTEIN 7.4 GM/DL (6.4-8.2)
[2023-05-08 10:58] LABS: BILIRUBIN,TOTAL 0.4 MG/DL (0.1-1.0)
[2023-05-08 11:00] LABS: CREATININE SERUM 0.87 MG/DL (0.60-1.30)
== END ==
LOC: LAB 10:38
PROVIDERS: ATTEND Nurse Practitioner Primary Care
DX: R73.03 Prediabetes (principal)
CPT/HCPCS: 36415; 80053; 83036

== ENCOUNTER → 2023-05-17 | Outpatient (CLI) | payer MEDICARE, MEDICAID ==
[2023-05-17 10:49] LABS: CHOLESTEROL 155 MG/DL (< 200); HDL CHOLESTEROL 40 MG/DL (40-60); TRIGLYCERIDES 196 MG/DL (<150); VLDL CHOLESTEROL 39 MG/DL (5-40)
== END ==
LOC: LAB 10:20
PROVIDERS: ATTEND Nurse Practitioner Primary Care
DX: E78.5 Hyperlipidemia, unspecified (principal)
CPT/HCPCS: 36415; 80061